=== PATIENT | male | born 1955 | race African-American/Black ===

== ENCOUNTER 2016-07-29 01:49 | Emergency (ER) | payer MEDICAID ==
[~2016-07-29] VITALS: Ht 185.4 cm; Wt 91.0 kg
[2016-07-29] MEDS ORDERED: LORAZEPAM 1MG TABLET PO ONE (04:45)
[2016-07-29 05:17] LABS: HEMATOCRIT. 44.7 % (42.0-52.0); MEAN CORPUSCULAR HEMOGLOBIN 29.7 pg (28.0-32.0); MEAN CORPUSCULAR HGB CONC 33.6 g/dL (31.0-37.0); MEAN CORPUSCULAR VOLUME 88.3 fL (80.0-94.0); MEAN PLATELET VOLUME 8.4 fl (7.4-10.4); PLATELET 347 x1000/uL (130-400); RED BLOOD CELL COUNT 5.06 mill/uL (4.7-6.1); RED CELL DISTRIBUTION WIDTH 13.8 % (11.6-14.6)
[2016-07-29 05:18] LABS: DIFFERENTIAL COMMENT 1
[2016-07-29 05:22] LABS: ANION GAP 15; CALCIUM 8.7 mg/dL (8.5-10.1); CARBON DIOXIDE 25 mEq/L (21-32); CHLORIDE 100 mEq/L (98-107); ETHANOL BLOOD < 10 mg/dL; INDEX HEMOLYSI 1 (1-3); INDEX ICTERIC 1 (1-4); INDEX LIPEMIC 1 (1-3); UREA NITROGEN BLOOD 28 mg/dL (7-21); eGFR > 60 mL/min (>60)
[2016-07-29] MEDS ORDERED: SODIUM CHLORIDE 0.9% 1,000 ML IV ONE (05:24)
[2016-07-29 05:34] LABS: ATYPICAL LYMPHOCYTES 1
[2016-07-29 05:35] LABS: PLATELET ESTIMATE NORMAL
[2016-07-29 10:33] VITALS: BP 111/74
== END 2016-07-29 10:36 | disposition home or self-care (01) ==
LOC: ER 01:49
DX: N17.9 Acute kidney failure, unspecified (principal); F41.9 Anxiety disorder, unspecified; E86.0 Dehydration; G40.909 Epilepsy, unspecified, not intractable, without status epilepticus
CPT/HCPCS: 36415; 80048; 85025; 96360; 99284; G0482; J7030; Z7610

== ENCOUNTER 2016-08-11 03:14 | Emergency (ER) | payer MEDICAID ==
[~2016-08-11] VITALS: Ht 188 cm; Wt 95.0 kg
[2016-08-11 05:43] VITALS: BP 128/85
== END 2016-08-11 05:46 | disposition home or self-care (01) ==
LOC: EDUNIT# 03:14 → ER 04:19
DX: F41.0 Panic disorder [episodic paroxysmal anxiety] (principal); I10 Essential (primary) hypertension
CPT/HCPCS: 99283

== ENCOUNTER 2017-01-26 15:29 | Emergency (ER) | payer MEDICAID ==
[~2017-01-26] VITALS: Ht 188 cm; Wt 92.0 kg
[2017-01-26] MEDS ORDERED: LORAZEPAM 0.5MG TABLET PO ONE (20:00)
[2017-01-26] MEDS ORDERED: DIPHENHYDRAMINE 25MG CAPSULE PO ONE (20:00)
[2017-01-26 20:20] LABS: HEMATOCRIT. 39.1 % (42.0-52.0); HEMOGLOBIN. 13.1 g/dL (14.0-18.0); MEAN CORPUSCULAR HEMOGLOBIN 29.3 pg (28.0-32.0); MEAN CORPUSCULAR VOLUME 87.3 fL (80.0-94.0); MEAN PLATELET VOLUME 8.4 fl (7.4-10.4); PLATELET 308 x1000/uL (130-400); RED BLOOD CELL COUNT 4.48 mill/uL (4.7-6.1); RED CELL DISTRIBUTION WIDTH 14.2 % (11.6-14.6)
[2017-01-26 20:31] LABS: CARBON DIOXIDE 25 mEq/L (21-32); CHLORIDE 109 mEq/L (98-107); ETHANOL BLOOD < 10 mg/dL
[2017-01-26 20:35] LABS: PLATELET ESTIMATE NORMAL
[2017-01-26 21:06] LABS: *AMPHETAMINES SCREEN URINE NEGATIVE (NEGATIVE); *BARBITURATES SCREEN URINE NEGATIVE (NEGATIVE); *BENZODIAZEPINES SCREEN URINE NEGATIVE (NEGATIVE); *COCAINE SCREEN URINE NEGATIVE (NEGATIVE); CANNABINOID URINE SCREEN NEGATIVE (NEGATIVE); METHADONE URINE SCREEN NEGATIVE (NEGATIVE); OPIATES URINE SCREEN NEGATIVE (NEGATIVE); PHENCYCLIDINE URINE SCREEN NEGATIVE (NEGATIVE)
[2017-01-27] MEDS ORDERED: MECLIZINE 12.5MG TABLET PO ONE (00:45)
[2017-01-27] MEDS ORDERED: ACETAMINOPHEN 325MG TABLET PO ONE (00:45)
[2017-01-27 04:31] VITALS: BP 111/73
== END 2017-01-27 04:43 | disposition home or self-care (01) ==
LOC: ER 15:40
DX: F41.0 Panic disorder [episodic paroxysmal anxiety] (principal); F51.02 Adjustment insomnia; R03.0 Elevated blood-pressure reading, without diagnosis of hypertension; R51 Headache
CPT/HCPCS: 36415; 70450; 80048; 80305; 85025; 85651; 99285; G0482; J8597; Q0163

== ENCOUNTER 2017-08-03 13:34 | Emergency (ER) | payer MEDICAID ==
[~2017-08-03] VITALS: Ht 188 cm; Wt 100.0 kg
[2017-08-03 16:01] LABS: BASOPHILS % 0.8 % (0.0-2.0); EOSINOPHILS % 2.2 % (0.0-5.0); HEMATOCRIT. 41.7 % (42.0-52.0); MEAN CORPUSCULAR HEMOGLOBIN 29.6 pg (28.0-32.0); MEAN CORPUSCULAR VOLUME 88.1 fL (80.0-94.0); MEAN PLATELET VOLUME 8.3 fl (7.4-10.4); MONOCYTES % 10.6 % (2.0-8.0); NEUTROPHILS % 52.4 % (40.0-76.0); PLATELET 354 x1000/uL (130-400); RED BLOOD CELL COUNT 4.73 mill/uL (4.7-6.1)
[2017-08-03 16:10] LABS: CHLORIDE 112 mEq/L (98-107)
[2017-08-03 17:20] LABS: CLARITY URINE CLEAR (CLEAR); COLOR URINE YELLOW (YELLOW); KETONES URINE TRACE (NEGATIVE); LEUKOCYTE ESTERASE URINE NEGATIVE (NEGATIVE); NITRITE URINE NEGATIVE (NEGATIVE); OCCULT BLOOD URINE NEGATIVE (NEGATIVE); PROTEIN URINE NEGATIVE (NEGATIVE); SPECIFIC GRAVITY URINE 1.022 (1.005-1.030); UROBILINOGEN URINE 0.2 E.U./dL (0.2-1.0)
[2017-08-03 17:49] LABS: *AMPHETAMINES SCREEN URINE NEGATIVE (NEGATIVE); *BARBITURATES SCREEN URINE NEGATIVE (NEGATIVE); *BENZODIAZEPINES SCREEN URINE NEGATIVE (NEGATIVE); CANNABINOID URINE SCREEN NEGATIVE (NEGATIVE); METHADONE URINE SCREEN NEGATIVE (NEGATIVE); OPIATES URINE SCREEN NEGATIVE (NEGATIVE); PHENCYCLIDINE URINE SCREEN NEGATIVE (NEGATIVE)
[2017-08-03 17:57] LABS: *COCAINE SCREEN URINE NEGATIVE (NEGATIVE)
[2017-08-03 18:10] VITALS: BP 116/88
== END 2017-08-03 18:23 | disposition home or self-care (01) ==
LOC: ER 15:10
DX: Z00.00 Encounter for general adult medical examination without abnormal findings (principal); Z86.61 Personal history of infections of the central nervous system; F41.9 Anxiety disorder, unspecified
CPT/HCPCS: 36415; 80053; 80305; 81003; 85025; 99284

== ENCOUNTER 2018-02-02 22:32 | Emergency (ER) | payer MEDICAID ==
[~2018-02-02] VITALS: Ht 188 cm; Wt 95.0 kg
[2018-02-02 22:37] VITALS: BP 164/96
[2018-02-04] MEDS ORDERED: TAMS-11 PO (19:48)
== END 2018-02-03 03:28 | disposition left against medical advice (07) ==
LOC: ER 22:32
DX: Z53.21 Procedure and treatment not carried out due to patient leaving prior to being seen by health care provider (principal)

== ENCOUNTER 2018-06-23 18:36 | Emergency (ER) | payer MEDICAID ==
[~2018-06-23] VITALS: Ht 188 cm; Wt 95.0 kg
[~2018-06-23 18:36] MED LIST: TAMS-11 PO
[2018-06-23 18:55] VITALS: BP 118/70
== END 2018-06-23 20:45 | disposition left against medical advice (07) ==
LOC: ER 18:36
DX: Z53.21 Procedure and treatment not carried out due to patient leaving prior to being seen by health care provider (principal)

== ENCOUNTER 2019-03-18 17:58 | Inpatient (IN) | payer OTHER, MEDICAID ==
[~2019-03-18] VITALS: Ht 188 cm; Wt 89.8 kg
[2019-03-18] MEDS ORDERED: SODIUM CHLORIDE 0.9% 1,000 ML IV ONE (22:40)
[2019-03-18] MEDS ORDERED: ONDANSETRON HCL 4MG/2ML INJ IV STA (22:40)
[2019-03-18] MEDS ORDERED: LORAZEPAM 2MG/ML CPJ IV ONE (22:45)
[2019-03-18 23:18] LABS: BASOPHILS % 0.5 % (0.0-2.0); EOSINOPHILS % 0.3 % (0.0-5.0); HEMATOCRIT. 38.6 % (42.0-52.0); HEMOGLOBIN. 13.1 g/dL (14.0-18.0); LYMPHOCYTES % 22.7 % (20.0-50.0); MEAN CORPUSCULAR HEMOGLOBIN 30.1 pg (28.0-32.0); MEAN CORPUSCULAR VOLUME 88.7 fL (80.0-94.0); MEAN PLATELET VOLUME 8.6 fl (7.4-10.4); MONOCYTES % 11.5 % (2.0-8.0); PLATELET 316 x1000/uL (130-400); RED BLOOD CELL COUNT 4.35 mill/uL (4.7-6.1); RED CELL DISTRIBUTION WIDTH 15.1 % (11.6-14.6)
[2019-03-18 23:22] LABS: CHLORIDE 109 mEq/L (98-107)
[2019-03-18 23:23] LABS: CLARITY URINE CLEAR (CLEAR); COLOR URINE YELLOW (YELLOW); KETONES URINE NEGATIVE (NEGATIVE); LEUKOCYTE ESTERASE URINE NEGATIVE (NEGATIVE); NITRITE URINE NEGATIVE (NEGATIVE); OCCULT BLOOD URINE NEGATIVE (NEGATIVE); PH URINE 5.5 (4.5-8.0); PROTEIN URINE NEGATIVE (NEGATIVE); SPECIFIC GRAVITY URINE 1.004 (1.005-1.030); UROBILINOGEN URINE 0.2 E.U./dL (0.2-1.0)
[2019-03-18 23:26] LABS: ETHANOL BLOOD < 10 mg/dL
[2019-03-18 23:57] LABS: *AMPHETAMINES SCREEN URINE NEGATIVE (NEGATIVE); *BARBITURATES SCREEN URINE NEGATIVE (NEGATIVE); *BENZODIAZEPINES SCREEN URINE NEGATIVE (NEGATIVE); *COCAINE SCREEN URINE NEGATIVE (NEGATIVE); METHADONE URINE SCREEN NEGATIVE (NEGATIVE); OPIATES URINE SCREEN NEGATIVE (NEGATIVE)
[2019-03-18 23:58] LABS: CANNABINOID URINE SCREEN NEGATIVE (NEGATIVE); PHENCYCLIDINE URINE SCREEN NEGATIVE (NEGATIVE)
[2019-03-19] MEDS ORDERED: ONDANSETRON HCL 4MG/2ML INJ IV ONE (02:15)
[2019-03-19] MEDS ORDERED: MORPHINE SULFATE 4 MG/ML CPJ (NOT FOR IM USE) IV ONE (02:15)
[2019-03-19 04:11] VITALS: BP 144/77
[2019-03-19 05:20] VITALS: BP 144/77
[2019-03-19] MEDS ORDERED: SODIUM CHL 0.45% + KCL 20MEQ/L 1,000 ML IV SCH (05:45)
[2019-03-19 08:00] VITALS: BP 130/89
[2019-03-19] MEDS ORDERED: ENOXAPARIN 40MG/0.4ML SYR SUBCUT SCH (09:00)
[2019-03-19] MEDS ORDERED: TAMSULOSIN HCL 0.4MG SR CAPSULE PO SCH (09:00)
[2019-03-19 09:27] LABS: HEMATOCRIT 39.1 % (42.0-52.0); HEMOGLOBIN 13.2 g/dL (14.0-18.0); MEAN CORPUSCULAR HEMOGLOBIN 30.2 pg (28.0-32.0); MEAN CORPUSCULAR VOLUME 89.1 fL (80.0-94.0); PLATELET 309 x1000/uL (130-400); RED BLOOD CELL COUNT 4.38 mill/uL (4.7-6.1); RED CELL DISTRIBUTION WIDTH 15.4 % (11.6-14.6)
[2019-03-19 09:33] LABS: CHLORIDE 110 mEq/L (98-107)
[2019-03-19] MEDS ORDERED: LACT10SO30 MT (10:53)
[2019-03-19] MEDS ORDERED: SORBITOL 70% SOLN 30ML PO SCH (11:00)
[2019-03-19 11:47] LABS: CREATINE KINASE MB FRACTION 2.7 ng/mL (0.5-3.6)
[2019-03-19 12:00] VITALS: BP 113/86
[2019-03-19 15:26] VITALS: BP 113/86
[2019-03-20] MEDS ORDERED: DOCU50LI25 PO (11:09)
== END 2019-03-19 16:30 | disposition home or self-care (01) | DRG 501 ==
LOC: ER 17:58 → EDBEDREQTM 03-19 02:04 → EDBEDREQ 03-19 02:04 → ENRESERV 03-19 03:12 → 7WST 03-19 04:14
PROVIDERS: ADMIT Internal Medicine Geriatric Medicine; ATTEND Internal Medicine Geriatric Medicine
DX: N40.1 Benign prostatic hyperplasia with lower urinary tract symptoms (principal); C61 Malignant neoplasm of prostate; E44.1 Mild protein-calorie malnutrition; D63.8 Anemia in other chronic diseases classified elsewhere; E86.0 Dehydration; I10 Essential (primary) hypertension; M47.812 Spondylosis without myelopathy or radiculopathy, cervical region; R33.8 Other retention of urine; K59.09 Other constipation; Z79.899 Other long term (current) drug therapy; Z85.46 Personal history of malignant neoplasm of prostate; Z80.42 Family history of malignant neoplasm of prostate; Z68.25 Body mass index [BMI] 25.0-25.9, adult; R35.0 Frequency of micturition
CPT/HCPCS: 36415; 71045; 74176; 80305; 80320; 81003; 82378; 82553; 83735; 83880; 84153; 84484; 85027; 86038; 93005; 99285; J1650; J2060; J2405; J3480; J7030; A4315; G0103; G0480

== ENCOUNTER 2019-03-20 04:16 | Inpatient (IN) | payer MEDICAID ==
[~2019-03-20] VITALS: Ht 188 cm; Wt 93.0 kg
[~2019-03-20 04:16] MED LIST changes: +LACT10SO30 MT
[2019-03-20] MEDS ORDERED: SODIUM CHLORIDE 0.9% 1,000 ML IV ONE (06:09)
[2019-03-20 06:35] LABS: CHLORIDE 108 mEq/L (98-107)
[2019-03-20 06:39] LABS: ETHANOL BLOOD < 10 mg/dL
[2019-03-20] MEDS ORDERED: ASPIRIN 81MG TABLET PO ONE (06:45)
[2019-03-20 06:49] LABS: BASOPHILS % 0.7 % (0.0-2.0); EOSINOPHILS % 0.9 % (0.0-5.0); HEMATOCRIT. 41.2 % (42.0-52.0); HEMOGLOBIN. 13.7 g/dL (14.0-18.0); LYMPHOCYTES % 29.2 % (20.0-50.0); MEAN CORPUSCULAR HEMOGLOBIN 30.1 pg (28.0-32.0); MEAN CORPUSCULAR VOLUME 90.5 fL (80.0-94.0); MEAN PLATELET VOLUME 9.2 fl (7.4-10.4); MONOCYTES % 11.5 % (2.0-8.0); NEUTROPHILS % 57.7 % (40.0-76.0); PLATELET 284 x1000/uL (130-400); RED BLOOD CELL COUNT 4.55 mill/uL (4.7-6.1); RED CELL DISTRIBUTION WIDTH 15.4 % (11.6-14.6)
[2019-03-20 07:38] LABS: *BARBITURATES SCREEN URINE NEGATIVE (NEGATIVE); *BENZODIAZEPINES SCREEN URINE NEGATIVE (NEGATIVE); *COCAINE SCREEN URINE NEGATIVE (NEGATIVE); METHADONE URINE SCREEN NEGATIVE (NEGATIVE); OPIATES URINE SCREEN NEGATIVE (NEGATIVE); PHENCYCLIDINE URINE SCREEN NEGATIVE (NEGATIVE)
[2019-03-20 07:39] LABS: *AMPHETAMINES SCREEN URINE NEGATIVE (NEGATIVE); CANNABINOID URINE SCREEN NEGATIVE (NEGATIVE)
[2019-03-20 09:30] VITALS: BP 137/89
[2019-03-20] MEDS ORDERED: DOCU50LI25 PO (11:09)
[2019-03-20] MEDS ORDERED: CLONIDINE 0.1MG TABLET PO PRN (11:30)
[2019-03-20] MEDS ORDERED: MAGNESIUM/ALUMINUM HYDROXIDE/SIMETHICONE 30ML UDC PO PRN (11:30)
[2019-03-20] MEDS ORDERED: ONDANSETRON HCL 4MG/2ML INJ IV PRN (11:30)
[2019-03-20] MEDS ORDERED: ACETAMINOPHEN 325MG TABLET PO PRN (11:30)
[2019-03-20 12:00] VITALS: BP 128/86
[2019-03-20] MEDS: ENOXAPARIN 40MG/0.4ML SYR SUBCUT SCH (12:47)
[2019-03-20] MEDS ORDERED: INFLUENZA VIRUS VACCINE(AFLURIA) 0.5ML SYR IM ONE (13:30)
[2019-03-20] MEDS ORDERED: AMLODIPINE 2.5MG TABLET PO SCH (13:45)
[2019-03-20] MEDS ORDERED: LACTULOSE 20G/30ML UDC PO NR (15:00)
[2019-03-20 16:00] VITALS: BP 117/68
[2019-03-20] MEDS ORDERED: GLYCERIN ADULT SUPPOSITORY PR PRN (16:45)
[2019-03-20] MEDS ORDERED: GLYCERIN ADULT SUPPOSITORY PR ONE (16:45)
[2019-03-20 16:52] LABS: CREATINE KINASE 360 IU/L (39-308)
[2019-03-20 16:55] LABS: CREATINE KINASE MB FRACTION 2.5 ng/mL (0.5-3.6)
[2019-03-20] MEDS: DOCUSATE SODIUM 100MG CAPSULE PO SCH (17:07)
[2019-03-20] MEDS ORDERED: MORPHINE SULFATE 2 MG/ML CPJ (NOT FOR IM USE) IV PRN (18:15)
[2019-03-20] MEDS ORDERED: BISACODYL 10MG SUPP PR NR (19:30)
[2019-03-20 20:00] VITALS: BP 146/89
[2019-03-21] VITALS: BP 106/69
[2019-03-21 04:00] VITALS: BP 112/71
[2019-03-21 06:50] LABS: HEMATOCRIT. 40.6 % (42.0-52.0); HEMOGLOBIN. 13.9 g/dL (14.0-18.0); MEAN CORPUSCULAR HEMOGLOBIN 30.5 pg (28.0-32.0); MEAN CORPUSCULAR VOLUME 89.2 fL (80.0-94.0); MEAN PLATELET VOLUME 8.5 fl (7.4-10.4); PLATELET 312 x1000/uL (130-400); RED BLOOD CELL COUNT 4.55 mill/uL (4.7-6.1); RED CELL DISTRIBUTION WIDTH 14.8 % (11.6-14.6)
[2019-03-21 07:27] LABS: CHLORIDE 109 mEq/L (98-107)
[2019-03-21 07:35] LABS: LDL CHOLESTEROL 96 mg/dL (5-100); PHOSPHORUS 4.7 mg/dL (2.5-4.9)
[2019-03-21 07:37] LABS: HDL CHOLESTEROL 48 mg/dL (40-59)
[2019-03-21 08:00] VITALS: BP 139/108
[2019-03-21] MEDS ORDERED: NA PHOS,M-B/NA PHOS,DI-BA ENEMA 118ML PR PRN (08:15)
[2019-03-21] MEDS: DOCUSATE SODIUM 100MG CAPSULE PO SCH (08:20)
[2019-03-21] MEDS ORDERED: BISACODYL 10MG SUPP PR PRN (08:30)
[2019-03-21] MEDS ORDERED: AMLODIPINE 2.5MG TABLET PO SCH (09:00)
[2019-03-21] MEDS ORDERED: GLYCERIN 0.3GM/0.3ML RECTAL SOLN (NEONATAL) PR NR (09:00)
[2019-03-21] MEDS ORDERED: TAMSULOSIN HCL 0.4MG SR CAPSULE PO SCH (09:00)
[2019-03-21] MEDS ORDERED: ASPIRIN 81MG EC TABLET PO SCH (09:00)
[2019-03-21 12:00] VITALS: BP 145/108
[2019-03-21] MEDS ORDERED: HYDROCODONE/ACETAMINOPHEN 5/325MG TABLET PO PRN (13:00)
[2019-03-21] MEDS: ENOXAPARIN 40MG/0.4ML SYR SUBCUT SCH (13:13)
[2019-03-21] MEDS ORDERED: HYDR-4001 MT ×2 (13:43→13:44)
[2019-03-21 13:53] LABS: PLATELET ESTIMATE NORMAL
[2019-03-21 15:19] VITALS: BP 145/108
[2019-03-21 16:56] LABS: CLARITY URINE CLOUDY (CLEAR); COLOR URINE RED (YELLOW); KETONES URINE TRACE (NEGATIVE); LEUKOCYTE ESTERASE URINE 1+ (NEGATIVE); NITRITE URINE NEGATIVE (NEGATIVE); OCCULT BLOOD URINE 3+ (NEGATIVE); PROTEIN URINE 3+ (NEGATIVE); SPECIFIC GRAVITY URINE 1.019 (1.005-1.030)
== END 2019-03-21 17:04 | disposition home or self-care (01) | DRG 500 ==
LOC: ER 04:16 → 8WST 07:25 → EDBEDREQ 07:34 → ENRESERV 07:44
PROVIDERS: ADMIT Internal Medicine; ATTEND Internal Medicine
DX: C61 Malignant neoplasm of prostate (principal); E88.09 Other disorders of plasma-protein metabolism, not elsewhere classified; I11.9 Hypertensive heart disease without heart failure; N40.1 Benign prostatic hyperplasia with lower urinary tract symptoms; R33.8 Other retention of urine; K59.00 Constipation, unspecified; I25.10 Atherosclerotic heart disease of native coronary artery without angina pectoris; F32.9 Major depressive disorder, single episode, unspecified; F41.9 Anxiety disorder, unspecified; E87.6 Hypokalemia; Z60.2 Problems related to living alone; Z79.899 Other long term (current) drug therapy; Z79.82 Long term (current) use of aspirin; Z85.46 Personal history of malignant neoplasm of prostate; Z80.42 Family history of malignant neoplasm of prostate
CPT/HCPCS: 36415; 71045; 80048; 80061; 80305; 80320; 81003; 82550; 82553; 83605; 83735; 83880; 84100; 84443; 84484; 93005; 93306; 93970; 96360; 96361; 97162; 97166; 99285; J1650; J2270; J7030; G0480

== ENCOUNTER 2019-03-22 21:29 | Emergency (ER) | payer MEDICAID ==
[~2019-03-22] VITALS: Ht 185.4 cm; Wt 91.0 kg
[~2019-03-22 21:29] MED LIST changes: +DOCU50LI25 PO; +HYDR-4001 MT
[2019-03-23 01:05] VITALS: BP 130/88
== END 2019-03-23 01:06 | disposition home or self-care (01) ==
LOC: ER 21:29
DX: Z46.6 Encounter for fitting and adjustment of urinary device (principal); I10 Essential (primary) hypertension; F41.9 Anxiety disorder, unspecified; Z85.46 Personal history of malignant neoplasm of prostate; Z98.890 Other specified postprocedural states
CPT/HCPCS: 99283; A4315

== ENCOUNTER 2019-04-06 08:46 | Emergency (ER) | payer MEDICAID ==
[~2019-04-06] VITALS: Ht 175.3 cm; Wt 75.0 kg
[2019-04-06 09:05] VITALS: BP 160/86
== END 2019-04-06 11:45 | disposition home or self-care (01) ==
LOC: ER 08:49
DX: Z00.8 Encounter for other general examination (principal); I10 Essential (primary) hypertension
CPT/HCPCS: 99283

== ENCOUNTER 2020-01-13 06:50 | Emergency (ER) | payer MEDICAID ==
[~2020-01-13] VITALS: Ht 182.9 cm; Wt 82.0 kg
[2020-01-13] MEDS ORDERED: SODIUM CHLORIDE 0.9% 1,000 ML IV ONE (07:01)
[2020-01-13] MEDS ORDERED: LORAZEPAM 2MG/ML CPJ IM ONE (07:15)
[2020-01-13] MEDS ORDERED: OLANZAPINE 10 MG/VIAL IM ONE (07:15)
[2020-01-13 08:31] LABS: BASOPHILS % 0.6 % (0.0-2.0); EOSINOPHILS % 0.1 % (0.0-5.0); HEMATOCRIT. 40.1 % (42.0-52.0); HEMOGLOBIN. 13.7 g/dL (14.0-18.0); LYMPHOCYTES % 11.8 % (20.0-50.0); MEAN CORPUSCULAR HEMOGLOBIN 30.6 pg (28.0-32.0); MEAN CORPUSCULAR VOLUME 89.4 fL (80.0-94.0); MEAN PLATELET VOLUME 9.2 fl (7.4-10.4); MONOCYTES % 6.7 % (2.0-8.0); NEUTROPHILS % 80.8 % (40.0-76.0); PLATELET 217 x1000/uL (130-400); RED BLOOD CELL COUNT 4.49 mill/uL (4.7-6.1); RED CELL DISTRIBUTION WIDTH 14.3 % (11.6-14.6)
[2020-01-13 08:39] LABS: CHLORIDE 102 mEq/L (98-107)
[2020-01-13 08:43] LABS: ETHANOL BLOOD < 10 mg/dL
[2020-01-13 08:57] LABS: CLARITY URINE CLEAR (CLEAR); COLOR URINE YELLOW (YELLOW); KETONES URINE 1+ (NEGATIVE); LEUKOCYTE ESTERASE URINE NEGATIVE (NEGATIVE); NITRITE URINE NEGATIVE (NEGATIVE); OCCULT BLOOD URINE NEGATIVE (NEGATIVE); PH URINE 5.5 (4.5-8.0); PROTEIN URINE NEGATIVE (NEGATIVE); SPECIFIC GRAVITY URINE 1.007 (1.005-1.030); UROBILINOGEN URINE 0.2 E.U./dL (0.2-1.0)
[2020-01-13 10:04] LABS: *AMPHETAMINES SCREEN URINE NEGATIVE (NEGATIVE); *BARBITURATES SCREEN URINE NEGATIVE (NEGATIVE); *BENZODIAZEPINES SCREEN URINE NEGATIVE (NEGATIVE); *COCAINE SCREEN URINE NEGATIVE (NEGATIVE)
[2020-01-13 10:05] LABS: CANNABINOID URINE SCREEN NEGATIVE (NEGATIVE); METHADONE URINE SCREEN NEGATIVE (NEGATIVE); OPIATES URINE SCREEN NEGATIVE (NEGATIVE); PHENCYCLIDINE URINE SCREEN NEGATIVE (NEGATIVE)
[2020-01-14] MEDS ORDERED: TAMSULOSIN HCL 0.4MG SR CAPSULE PO ONE (06:30)
[2020-01-14] MEDS ORDERED: POLYETHYLENE GLYCOL 3350 (17GM) 1 DOSE PACK PO ONE (06:30)
[2020-01-14 09:00] VITALS: BP 137/86
== END 2020-01-14 10:33 | disposition home or self-care (01) ==
LOC: ER 07:03
DX: F23 Brief psychotic disorder (principal); F91.8 Other conduct disorders; I10 Essential (primary) hypertension; Z85.9 Personal history of malignant neoplasm, unspecified
CPT/HCPCS: 36415; 70450; 71045; 80053; 80305; 80307; 80320; 80329; 81003; 84484; 85025; 93005; 96372; 99285; J2060; J3490; J7030; Z7610; G0480

== ENCOUNTER 2021-02-08 00:38 | Emergency (ER) | payer MEDICAID ==
[~2021-02-08] VITALS: Ht 180.3 cm; Wt 96.0 kg
[2021-02-08] MEDS ORDERED: DOCUSATE SODIUM 100MG CAPSULE PO ONE (01:15)
[2021-02-08] MEDS ORDERED: DOCU-138 MT (01:38)
[2021-02-08] MEDS: NA PHOS,M-B/NA PHOS,DI-BA ENEMA 118ML PR ONE ×2 (01:42→01:44)
[2021-02-08 01:59] VITALS: BP 150/90
== END 2021-02-08 02:00 | disposition home or self-care (01) ==
LOC: ER 00:38
DX: K59.00 Constipation, unspecified (principal); I10 Essential (primary) hypertension; Z59.0 Homelessness
CPT/HCPCS: 93005; 99283

== ENCOUNTER 2021-10-05 20:39 | Emergency (ER) | payer MEDICAID ==
[~2021-10-05] VITALS: Ht 185.4 cm; Wt 87.1 kg
[~2021-10-05 20:39] MED LIST changes: +DOCU-138 MT
[2021-10-05] MEDS ORDERED: SODIUM CHLORIDE 0.9% 1,000 ML IV ONE (22:30)
[2021-10-05 23:26] LABS: HEMATOCRIT 38.5 % (42.0-52.0); HEMOGLOBIN 12.6 g/dL (14.0-18.0); MEAN CORPUSCULAR HEMOGLOBIN 29.1 pg (28.0-32.0); MEAN CORPUSCULAR VOLUME 88.5 fL (80.0-94.0); PLATELET 271 x1000/uL (130-400); RED BLOOD CELL COUNT 4.35 mill/uL (4.7-6.1); RED CELL DISTRIBUTION WIDTH 14.9 % (11.6-14.6)
[2021-10-05 23:34] LABS: CHLORIDE 109 mEq/L (98-107)
[2021-10-05 23:41] LABS: CREATINE KINASE 436 IU/L (39-308)
[2021-10-05] MEDS ORDERED: SODIUM CHLORIDE 0.9% 1,000 ML IV NR (23:45)
[2021-10-06 02:22] LABS: CHLORIDE 111 mEq/L (98-107)
[2021-10-06 02:29] LABS: CREATINE KINASE 481 IU/L (39-308)
[2021-10-06 03:00] VITALS: BP 137/73
== END 2021-10-06 03:30 | disposition home or self-care (01) ==
LOC: ER 20:39
DX: M62.82 Rhabdomyolysis (principal); N17.9 Acute kidney failure, unspecified; E11.9 Type 2 diabetes mellitus without complications; I10 Essential (primary) hypertension; Z79.899 Other long term (current) drug therapy
CPT/HCPCS: 36415; 80048; 80053; 82550; 82962; 85027; 96360; 99283; J7030